=== PATIENT | female | born 1970 | race Caucasian/White ===

== ENCOUNTER 2022-11-28 15:07 | Inpatient (IN) | payer OTHER, SELFPAY ==
[2022-11-28] VITALS (11 sets, daily range): BP systolic 130–240; BP diastolic 14–132; PULSE 79–145; RESP 15–18; TEMP 36.6–37.2; O2SAT 96–99; BMI 29.0
--- NOTE | 2022-11-28 15:21 | EKG12_ITS ---
Test Reason : Blood Pressure : / mmHG Vent. Rate : 129 BPM Atrial Rate : 129 BPM P-R Int : 136 ms QRS Dur : 076 ms QT Int : 304 ms P-R-T Axes : 051 041 005 degrees QTc Int : 445 ms Sinus tachycardia Possible Left atrial enlargement Nonspecific ST abnormality Abnormal ECG Confirmed by MIRELA QUIÑONEZ, JAMES ([id number]), copy editor OSBALDO GOODE ([id number]) on 12/02/2022 10:58:25 AM Referred By: Confirmed By:NAVDEEP DIETZ MD
--- NOTE | 2022-11-28 15:28 | EDS_ITS ---
HPI History of Present Illness Chief Complaint: Hypertension Detail of Chief Complaint: Funduscopic changes occlusion due to HTN with retinal artery branch occlusi Informant: patient, spouse/S.O. and other (Finance Manager) Onset/Context/Timing Onset: - (Unknown) Context: - (Unknown) Timing: Continuous Quality: Ocular changes noted by electrician control equipment. And sent to ER for elevated BP Current Severity: Severe Maximum Severity: Severe Worsened by: Nothing Relieved by: Nothing. Associated Symptoms Associated Symptoms: Blurred vision left eye Narrative Narrative: Patient is a 51-year-old woman with no past medical history on no medication who was sent from ophthalmology office because of blood pressure of 240/140 with funduscopic changes consistent with chronic hypertension. Patient states she was seen by an hospice music therapist approxi-1 year ago. He did take a picture of her fundus and apparently there was no abnormality. She was seen by Dr. Goddard. Blood pressure at office yesterday was 180/110. She returned to have vitreous injection to treat the retinal branch occlusion. She denies headache, ringing or ears decreased hearing. Her only ocular/visual symptom is blurred vision left eye. She denies trouble speech or swallowing. She denies problems with coordination or balance. She denies paresthesia, anesthesia or motor weakness upper or lower extremities. She denies any cardiac or respiratory symptoms. She denies decreased urine output. Prior similar symptoms: No Recent Illness/Hospitalization: No PFSH PFSH Medical History no medical history no medical history Allergy/AdvReac Type Severity Reaction Status Date / Time No Known Allergies Allergy Verified 11/28/22 15:10 Family History no significant family his Surgical History no surgical history no surgical history Social History (Updated 11/28/22 @ 15:[address] Jaspal Ayala MD) household members: spouse Smoking Status: Never smoker substance use type: does not use ROS ROS ED Constitutional Constitutional ED: Denies chills, fever(s), subjective, sweats or weight loss Eyes Eyes: Reports blurry vision right and change in vision right; Denies diplopia ENT ENT ED: Denies ear pain, rhinorrhea or sore throat Cardiovascular Cardiovascular: Denies chest pain, orthopnea, palpitations, paroxysmal nocturnal dyspnea or racing heartbeat Respiratory/Chest Respiratory/Chest: Denies cough, dyspnea, dyspnea on exertion, orthopnea or paroxysmal nocturnal dyspnea Gastrointestinal Gastrointestinal: Denies abdominal pain, nausea or vomiting Genitourinary Genitourinary ED: Denies dysuria, hematuria or urinary frequency Musculoskeletal Musculoskeletal: Denies arthralgias, back pain, myalgias or neck pain Neurologic Neurologic: Denies headache(s), paresthesias or weakness Psychiatric Psychiatric: Reports anxiety Endocrine Endocrinology: Denies cold intolerance or heat intolerance Hematologic/Lymphatic Hematologic/Lymphatic: Reports systems reviewed and no addt'l complaints, except as documented EXAM Physical Exam Const Vital Signs: 11/28/22 15:09 11/28/22 15:52 11/28/22 15:54 Temperature 97.8 F Temperature Source Temporal Pulse Rate 145 H 114 H Respiratory Rate 18 16 Respiratory Effort Normal Respiratory Pattern Normal Blood Pressure 240/14 H Blood Pressure Mean 89 Pulse Ox 98 96 Oxygen Delivery Method Room Air Room Air 11/28/22 16:27 Temperature Temperature Source Pulse Rate 128 H Respiratory Rate 17 Respiratory Effort Respiratory Pattern Blood Pressure 226/132 H Blood Pressure Mean 163 Pulse Ox 97 Oxygen Delivery Method Positive well nourished and well developed General Appearance ED: well developed and NAD; Negative for cyanotic, diaphoretic or pallor HEENT Reports moist mucous membranes HEENT Narrative: Uvula is midline. Posterior pharynx unremarkable. There is no deviation of the tongue with protrusion. Ears and TMs normal. Nares patent. Eyes EOMs intact bilaterally Eyes Narrative: Left eye is dilated. She presented from the electrician control equipment office. There is no papilledema. There are changes noted. After discussion with the ophthalmo logist he informed that there is a retinal branch occlusion and hemorrhages noted. General Eye ED: Negative for pale conjunctiva or scleral icterus Neck no lymphadenopathy, supple and no JVD Resp normal respiratory effort and clear to auscultation bilaterally Cardio regular rhythm, S1 normal heart sound, S2 normal heart sound and no murmurs Rate: tachycardic GI normal to inspection, nondistended, normoactive bowel sounds, non-tender, non- distended and hepatosplenomegaly Back/Spine no CVA tenderness Extremity normal to inspection Neuro oriented x3, CN's II-XII intact bilaterally and no sensory deficits noted Sensorium / Orientation: alert Psych mental status grossly normal Skin no rashes or lesions noted, no wounds and skin turgor normal General Skin Exam: Negative for jaundice or pallor MDM MDM MDM Narrative Medical decision making narrative: Patient has funduscopic changes due to hypertension. Suspect this is longstanding hypertension. Will obtain appropriate work-up which will include EKG, chest x-ray, BMP, UA to evaluate for endorgan dysfunction. Will place on monitor. Patient heart rate was rapid when I examined her. Not certain it is 145. If it is significantly elevated will treat her hypertension with labetalol drip versus a Cardene drip. History & Record Review Discussion w/independent historian: EMS personnel and Significant other Additional record(s) reviewed:: No prior records Lab Data Attestation: I reviewed the patient's lab results. Lab results narrative: CBC is unremarkable. Basic panel is unremarkable. BUN and creatinine are 17 and 0.96 respectively with a GFR of 65. Urine has trace occult blood on macro. Labs: Laboratory Results - last 24 hr 11/28/22 11/28/22 11/28/22 15:45 15:45 16:25 WBC 6.4 RBC 5.33 Hgb 14.5 Hct 46.2 MCV 86.7 MCH 27.2 MCHC 31.4 L RDW Std Deviation 43.2 RDW Coeff of Jeane 13.7 Plt Count 350 MPV 9.7 Immature Gran % (Auto) 0.200 Neut % (Auto) 73.9 H Lymph % (Auto) 18.1 L [place] % (Auto) 6.2 Eos % (Auto) 0.5 Baso % (Auto) 1.1 H Absolute Neuts (auto) 4.7 Absolute Lymphs (auto) 1.16 Nucleated RBC % 0 Sodium 139 Potassium 3.4 L Chloride 109 H Carbon Dioxide 22.0 Anion Gap 8 BUN 17 Creatinine 0.96 Estim Creat Clear Calc 57.99 Est GFR (MDRD) Af Amer 79 Est GFR (MDRD) Non-Af 65 BUN/Creatinine Ratio 17.7 Glucose 106 Calcium 9.7 TSH 1.07 Urine Color Yellow Urine Clarity Clear Urine pH 7.0 Ur Specific [place] 1.010 Urine Protein Negative Urine Glucose (UA) Normal Urine Ketones Negative Urine Occult Blood 10 H Urine Nitrite Negative Urine Bilirubin Negative Urine Urobilinogen Normal Ur Leukocyte Esterase Negative Urine RBC 0-5 SEEN Urine WBC 0 SEEN Ur Squamous Epith Cells 0-5 SEEN Urine Bacteria 0 SEEN Urine Mucus 0 SEEN Radiography Chest X-Ray - ED: 1 View and Read by ED Physician (Cardiac silhouette and size unremarkable. Perihilar region unremarkable with no widening. No evidence of effusion. Osseous structures unremarkable.) Diagnostic Testing: Clinical Impression(s) from Imaging Studies Chest X-Ray 11/28/22 15:45 IMPRESSION: No acute pulmonary disease. Electronically Signed: Adryan Weston MD at 16:32 EDT , Rhythm Strip Rhythm Strip: Sinus Tach Rate: 132 Ectopy: None EKG Initial EKG: Attestation: I personally reviewed and interpreted this EKG as follows: Interpretation: Sinus Tachycardia (Rate is 129. PA interval is 136 ms. QRS duration 76 ms. QT duration 304 ms. [place] is normal. There appears to be left atrial enlargement. There is nonseptic ST-T wave changes. There is no voltage criteria for LVH. EKG is abnormal.) Treatment and Re-Evaluation :: Discussion with electrician control equipment, review of prior records through [facility]. There are no records at [facility] or outside records available for review. This confirms patient has not seen the patient in some time. Titrating blood pressure. Most recent blood pressure is 20 25/126. Hospitalist been paged for admission. 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
--- NOTE | 2022-11-28 15:45 | RAD_ITS ---
INDICATION: hypertension EXAMINATION: Frontal view of the chest COMPARISON: None. FINDINGS: Frontal view of the chest was obtained. The cardiac silhouette is not enlarged. No confluent airspace disease. No pneumothorax. No acute fracture identified. RAD/Chest 1 View (Portable) IMPRESSION: No acute pulmonary disease. Electronically Signed: Adryan Weston MD at 16:32 EDT ,
[2022-11-28 15:54] LABS: Absolute Lymphocyte Count 1.16 X10^3/uL (0.83-4.51); Absolute Neutrophil Count 4.7 X10^3/uL (2.0-7.7); Basophil# 0.07 X10^3/uL; Basophil% 1.1 % (0-1); Eosinophil# 0.03 X10^3/uL; Eosinophils% 0.5 % (0-5); Hematocrit 46.2 % (37-47); Hemoglobin 14.5 g/dL (12.0-15.0); Lymphocyte # 1.16 X10^3/ul (0.83-4.51); Lymphocyte % 18.1 % (19-41); Mean Corp Hgb Conc 31.4 g/dL (32-36); Mean Corpuscular Hgb 27.2 pg (27.0-32.0); Mean Corpuscular Volume 86.7 fL (81-99); Mean Platelet Vol. 9.7 fl (6.2-12.0); Monocyte% 6.2 % (0-10); NRBC Flagged by Analyzer 0 % (0-5); Neutrophil # 4.74 X10^3/uL (2.7-7.7); Neutrophil % 73.9 % (47-70); Platelet Count 350 K/mm3 (150-450); RBC Distribution Width CV 13.7 % (11.6-14.6); RBC Distribution Width SD 43.2 fl (35.1-43.9); Red Blood Count 5.33 M/mm3 (4.2-5.4); White Blood Count 6.4 K/mm3 (4.4-11.0)
[2022-11-28 16:29] LABS: Anion Gap 8 (5-15); BUN 17 mg/dL (7-18); BUN/Creat Ratio 17.7 RATIO (10-20); Calcium,Total 9.7 mg/dL (8.5-10.1); Chloride 109 mmol/L (98-107); Creatinine, Serum 0.96 mg/dL (0.55-1.02); EST Glomerular Filtration Rate 65 mL/min (>60); Est Glom Filt Rate - Afr Amer 79 mL/min (>60); Estimated Creatinine Clearance 57.99 ml/min; Glucose 106 mg/dL (74-106); Potassium 3.4 mmol/L (3.5-5.1); Sodium Level 139 mmol/L (136-145); Thyroid Stim Hormone (TSH) 1.07 uIU/mL (0.358-3.74)
[2022-11-28 16:33] LABS: Bacteria 0 SEEN /hpf (None Seen); Mucous, Urine 0 SEEN /hpf (<or=2+)
[2022-11-28 16:36] LABS: Color, Urine Yellow (Yellow); Glucose, Dipstick Normal (Normal); Ketone-Dipstick Negative (Negative); Leukocyte Esterase-Dipstick Negative /ul (Negative); Nitrite-Dipstick Negative (Negative); Occult Blood-Urine 10 /ul (Negative); Protein-Dipstick Negative (Negative); Urine Bilirubin Dipstick Negative (Negative); Urine Clarity Clear (Clear); Urine Urobilinogen Normal (Normal)
[2022-11-28 16:46] LABS: Red Blood Cells-Urine 0-5 SEEN /hpf (0-5); Squamous Epithelial Cells - UA 0-5 SEEN /hpf (5-10); White Blood Cells 0 SEEN /hpf (0-5)
--- NOTE | 2022-11-28 17:41 | HP.PCM.HOS_ITS ---
HPI - General General Date of Admission: 11/28/22 Date of Service: 11/28/22 Chief Complaint: visual changes HPI Narrative EUSEBIA CLARKE, is a 51 F who presents left eye blurred vision. Went to see compliance technician yesterday and had a blood pressure 180/110. She was returned today to have an injection for retinal branch occlusion. In the office she was noted to have a blood pressure of 240/140 and funduscopic changes consistent with hypertension. Patient was then directed to the emergency room. In the emergency room, her blood pressure was still elevated in the 2 40-1 40 and was also tachycardic. Patient was started on the labetalol drip for hypertensive management. Patient denied any headache, chest pain and really her only complaint was a visual changes in her left eye. Patient does not routinely see a physician so but she did get a blood pressure cuff yesterday when it was noted that her blood pressure was 180/110. [facility] Medical History (Updated 11/28/22 @ 17:[address] Ehsan Anna DO) HTN (hypertension) Medical History no medical history Home Medications NK 11/28/22 [History Last Taken Unknown] Allergy/AdvReac Type Severity Reaction Status Date / Time No Known Allergies Allergy Verified 11/28/22 15:10 Family History (Updated 11/28/22 @ 17:[address] Ehsan Anna DO) Other CVA (cerebral vascular accident) Heart disease Family History no significant family his Surgical History no surgical history Social History (Updated 11/28/22 @ 17:[address] Ehsan Anna DO) household members: spouse Smoking Status: Never smoker alcohol intake: never substance use type: does not use ROS ROS Narrative All review of systems were negative except as mentioned above in the history of present illness and the other review of systems. Vital Signs Vital Signs Vital Signs: 11/28/22 15:09 11/28/22 15:52 11/28/22 15:54 Temperature 36.6 C Temperature Source Temporal Pulse Rate 145 H 114 H Respiratory Rate 18 16 Respiratory Effort Normal Respiratory Pattern Normal Blood Pressure 240/14 H Blood Pressure Mean 89 Pulse Ox 98 96 Oxygen Delivery Method Room Air Room Air 11/28/22 16:27 11/28/22 16:53 11/28/22 17:26 Temperature 36.8 C Temperature Source Temporal Pulse Rate 128 H 104 H 94 Respiratory Rate 17 16 17 Respiratory Effort Respiratory Pattern Blood Pressure 226/132 H 210/116 H 170/106 H Blood Pressure Mean 163 147 127 Pulse Ox 97 97 97 Oxygen Delivery Method Room Air Weight Weight: 74.48 kg Body Mass Index (BMI) 29.0 Physical Exam Const alert and no apparent distress HEENT normocephalic and head/scalp atraumatic Eyes Eyes Narrative: Eyes are dilated. For scopic exam was limited but was concerning for some vitreal hemorrhage. Resp normal respiratory effort, no retractions, no use of accessory muscles and clear to auscultation bilaterally Cardio regular rate, regular rhythm, S1 normal heart sound and S2 normal heart sound GI normal to inspection, nondistended, normoactive bowel sounds, soft to palpation, non-tender and non-distended Extremity normal to inspection Neuro oriented x3, moves all extremities and no focal motor deficits Sensorium / Orientation: awake and alert Results Lab / Micro Data Result Diagrams: 11/28/22 15:45 11/28/22 15:45 Labs: Laboratory Results - last 24 hr 11/28/22 15:45: WBC 6.4, RBC 5.33, Hgb 14.5, Hct 46.2, MCV 86.7, MCH 27.2, MCHC 31.4 L, RDW Std Deviation 43.2, RDW Coeff of Jeane 13.7, Plt Count 350, MPV 9.7, Immature Gran % (Auto) 0.200, Neut % (Auto) 73.9 H, Lymph % (Auto) 18.1 L, [place] % (Auto) 6.2, Eos % (Auto) 0.5, Baso % (Auto) 1.1 H, Absolute Neuts (auto) 4.7, Absolute Lymphs (auto) 1.16, Nucleated RBC % 0 11/28/22 15:45: Sodium 139, Potassium 3.4 L, Chloride 109 H, Carbon Dioxide 22.0, Anion Gap 8, BUN 17, Creatinine 0.96, Estim Creat Clear Calc 57.99, Est GFR (MDRD) Af Amer 79, Est GFR (MDRD) Non-Af 65, BUN/Creatinine Ratio 17.7, Glucose 106, Calcium 9.7, TSH 1.07 11/28/22 16:25: Urine Color Yellow, Urine Clarity Clear, Urine pH 7.0, Ur Specific [place] 1.010, Urine Protein Negative, Urine Glucose (UA) Normal, Urine Ketones Negative, Urine Occult Blood 10 H, Urine Nitrite Negative, Urine Bilirubin Negative, Urine Urobilinogen Normal, Ur Leukocyte Esterase Negative, Urine RBC 0-5 SEEN, Urine WBC 0 SEEN, Ur Squamous Epith Cells 0-5 SEEN, Urine Bacteria 0 SEEN, Urine Mucus 0 SEEN Rhythm Strip Rhythm Strip: Sinus Tach Rate: 132 Ectopy: None Radiology Impression Chest X-Ray 11/28/22 15:45 IMPRESSION: No acute pulmonary disease. Electronically Signed: Adryan Weston MD at 16:32 EDT , Assessment & Plan Assessment/Plan (1) Hypertensive emergency: PLAN: Hypertensive emergency with changes in her left eye with retinal branch occlusion as well as hemorrhage patient was started on a labetalol drip and blood pressure seems to be improved. We will start the patient on lisinopril and hydrochlorothiazide and if blood pressure can remain less than 180 systolic then we can discontinue the labetalol drip and continue with the lisinopril and hydrochlorothiazide. X-ray the patient understands another that we are not anticipating her having normal blood pressures upon discharge but having much more reasonable. It is unclear how long her blood pressure has been elevated but we suspect its been elevated for period of time Patient now does have a blood pressure cuff at home and she has been encouraged to continue to use that until her blood pressure is stabilized at home. Patient also advised to become established with a primary care physician who can manage her blood pressure as well as her other routine maintenance and screening. 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 This is likely due to the hypertensive emergency Patient will need to follow-up with ophthalmology as outpatient PLAN: Plan VTE prophylaxis patient be on SCDs Disposition: Patient will be admitted to the ICU due to labetalol drip but if we can have that discontinued then patient can be eventually PCU status. We will need to monitor to ensure stability of her blood pressure prior to discharge. Charges/Coding Visit Charges Inpatient E&M: 45226 Init Hosp L3
--- NOTE | 2022-11-28 19:31 | ED.RN ---
PER DR. GARCIA SHUT OFF LABETALOL. DR. GARCIA STATES HE PUT IN PARAMETERS FOR MEDICATION BUT UNABLE TO SEE ON MAR. MAR DOUBLE CHECKED WITH KRISTINA CHARGE NURSE
--- NOTE | 2022-11-28 19:46 | ECHOD_ITS ---
Reason For Study: HYPERTENSIVE EMERGENY Procedure This was a 2D Doppler, Color Flow transthoracic echocardiogram. Exam performed portable in ICU/CCU. Left Ventricle Normal LV size. The estimated ejection fraction is 70 %. Normal diastology for age. No regional wall motion abnormalities noted. Right Ventricle Normal RV size. Normal systolic function. Atria Normal left atrium. Normal right atrium. No doppler evidence for ASD. Mitral Valve There is no mitral valve stenosis. No mitral valve insufficiency. Tricuspid Valve There is no tricuspid stenosis. Unable to estimate RV systolic pressure due to insufficient tricuspid regurgitant envelope. Trivial tricuspid valve insufficiency. Aortic Valve Trisinus/trileaflet aortic valve. There is no aortic stenosis. No aortic valve insufficiency. Pulmonic Valve There is no pulmonic valvular stenosis. No pulmonic valve insufficiency. Great Vessels Normal aortic root. Pericardium/Pleural No pericardial effusion. MMode/2D Measurements & Calculations LVIDd: 4.2 cm IVSd: 1.2 cm Ao root diam: 2.6 cm LVIDs: 2.7 cm LVPWd: 1.2 cm FS: 35.2 % LAV(MOD-bp): 48.8 ml EDV(MOD-sp4): 59.2 ml SV(MOD-sp4): 31.0 ml LAV(MOD-bp) Indexed: 27.5 ml/m2 ESV(MOD-sp4): 28.2 ml LAV(MOD-sp2): 42.1 ml EF(MOD-sp4): 52.3 % LAV(MOD-sp4): 51.0 ml LA dimension(2D): 3.2 cm LA A4 area: 18.2 cm2 RA A4 area: 11.7 cm2 Time Measurements MV dec time: 0.20 sec Doppler Measurements & Calculations MV E max sridhar: 102.6 cm/sec Lat Peak E' Sridhar: 7.8 cm/sec Med Peak E' Sridhar: 6.2 cm/sec MV A max sridhar: 114.1 cm/sec E/E' lat: 13.2 E/E' med: 16.6 MV E/A: 0.90 MV V2 max: 118.3 cm/sec MV dec slope: 533.7 cm/sec2 Ao V2 max: 203.7 cm/sec MV max P.6 mmHg Ao max P.6 mmHg MV V2 mean: 82.0 cm/sec Ao V2 mean: 142.9 cm/sec MV mean P.0 mmHg Ao mean P.3 mmHg MV V2 VTI: 29.8 cm Ao V2 VTI: 40.3 cm PA V2 max: 131.6 cm/sec PA V2 mean: 100.4 cm/sec ECHO/Echo Complete Interpretation Summary The estimated ejection fraction is 70 %. No significant valvular abnormalities Ordering Physician: Ehsan Anna Referring Physician: MARIANNE GARIBAY Performed By: Christy Fu RCS
[2022-11-28] MEDS: Lisinopril 20 MG Tablet PO (20:26)
[2022-11-28] MEDS: hydroCHLOROthiazide 25 MG Tablet PO (20:26)
[2022-11-28] MEDS: Potassium Chloride Oral Tablet 20 MEQ 40 MEQ PO (21:12)
[2022-11-29] VITALS (11 sets, daily range): BP systolic 107–136; BP diastolic 66–89; PULSE 70–86; RESP 12–16; TEMP 36.9–37.1; O2SAT 96–99; BMI 28.9
[2022-11-29 05:05] LABS: Anion Gap 4 (5-15); BUN 15 mg/dL (7-18); BUN/Creat Ratio 16.8 RATIO (10-20); Calcium,Total 9.2 mg/dL (8.5-10.1); Chloride 109 mmol/L (98-107); EST Glomerular Filtration Rate 71 mL/min (>60); Est Glom Filt Rate - Afr Amer 85 mL/min (>60); Estimated Creatinine Clearance 61.86 ml/min; Glucose 112 mg/dL (74-106); Magnesium 2.5 mg/dL (1.6-2.6); Potassium 3.9 mmol/L (3.5-5.1); Sodium Level 139 mmol/L (136-145)
--- NOTE | 2022-11-29 07:38 | PCM.PN.HOSP ---
Reason for Visit Reason for Visit: Diagnoses Other specified retinal disorders (11/28/22) Essential (primary) hypertension (11/28/22) Hypertensive emergency (11/28/22) Subjective Subjective feeling well. Objective Data Objective Data Vital Signs: Vital Signs Temp Pulse Resp BP Pulse Ox O2 Del Method 37.1 C 86 12 119/76 96 Room Air 11/29/22 00:00 11/29/22 06:00 11/29/22 06:00 11/29/22 06:00 11/29/22 06:00 11/29/22 06:00 Oxygen Delivery Method Room Air Weight: 74 kg Body Mass Index (BMI) 28.9 Intake & Output: Intake and Output for Last 24 Hours 11/27/22 11/28/22 11/29/22 23:59 23:59 23:59 Intake Total 593.75 / 1093.75 500 / 500 Balance 593.75 / 1093.75 500 / 500 Lab / Micro Data Result Diagrams: 11/28/22 15:45 11/29/22 04:45 Labs: Laboratory Results - last 24 hr 11/28/22 15:45: WBC 6.4, RBC 5.33, Hgb 14.5, Hct 46.2, MCV 86.7, MCH 27.2, MCHC 31.4 L, RDW Std Deviation 43.2, RDW Coeff of Jeane 13.7, Plt Count 350, MPV 9.7, Immature Gran % (Auto) 0.200, Neut % (Auto) 73.9 H, Lymph % (Auto) 18.1 L, [place] % (Auto) 6.2, Eos % (Auto) 0.5, Baso % (Auto) 1.1 H, Absolute Neuts (auto) 4.7, Absolute Lymphs (auto) 1.16, Nucleated RBC % 0 11/28/22 15:45: Sodium 139, Potassium 3.4 L, Chloride 109 H, Carbon Dioxide 22.0, Anion Gap 8, BUN 17, Creatinine 0.96, Estim Creat Clear Calc 57.99, Est GFR (MDRD) Af Amer 79, Est GFR (MDRD) Non-Af 65, BUN/Creatinine Ratio 17.7, Glucose 106, Calcium 9.7, TSH 1.07 11/28/22 16:25: Urine Color Yellow, Urine Clarity Clear, Urine pH 7.0, Ur Specific [place] 1.010, Urine Protein Negative, Urine Glucose (UA) Normal, Urine Ketones Negative, Urine Occult Blood 10 H, Urine Nitrite Negative, Urine Bilirubin Negative, Urine Urobilinogen Normal, Ur Leukocyte Esterase Negative, Urine RBC 0-5 SEEN, Urine WBC 0 SEEN, Ur Squamous Epith Cells 0-5 SEEN, Urine Bacteria 0 SEEN, Urine Mucus 0 SEEN 11/29/22 04:45: Sodium 139, Potassium 3.9, Chloride 109 H, Carbon Dioxide 26.0, Anion Gap 4 L, BUN 15, Creatinine 0.90, Estim Creat Clear Calc 61.86, Est GFR (MDRD) Af Amer 85, Est GFR (MDRD) Non-Af 71, BUN/Creatinine Ratio 16.8, Glucose 112 H, Calcium 9.2, Magnesium 2.5 Radiography Diagnostic Testing: Radiology Impression Chest X-Ray 11/28/22 15:45 IMPRESSION: No acute pulmonary disease. Electronically Signed: Adryan Weston MD at 16:32 EDT , Rhythm Strip Rhythm Strip: Sinus Tach Rate: 132 Ectopy: None Physical Exam Const alert and no apparent distress Resp normal respiratory effort, no retractions, no use of accessory muscles and clear to auscultation bilaterally Cardio regular rate, regular rhythm, S1 normal heart sound and S2 normal heart sound GI normal to inspection, nondistended, normoactive bowel sounds, soft to palpation, non-tender and non-distended Extremity normal to inspection Assessment & Plan Assessment/Plan (1) Hypertensive emergency: PLAN: Improved Hypertensive emergency with changes in her left eye with retinal branch occlusion as well as hemorrhage patient was started on a labetalol drip and blood pressure seems to be improved. We will start the patient on lisinopril and hydrochlorothiazide and if blood pressure can remain less than 180 systolic then we can discontinue the labetalol drip and continue with the lisinopril and hydrochlorothiazide. X-ray the patient understands another that we are not anticipating her having normal blood pressures upon discharge but having much more reasonable. It is unclear how long her blood pressure has been elevated but we suspect its been elevated for period of time Patient now does have a blood pressure cuff at home and she has been encouraged to continue to use that until her blood pressure is stabilized at home. Patient also advised to become established with a primary care physician who can manage her blood pressure as well as her other routine maintenance and screening. Echo shows an EF 70%. 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 This is likely due to the hypertensive emergency Patient will need to follow-up with ophthalmology as outpatient PLAN: Plan VTE prophylaxis patient be on SCDs Disposition: Patient will be admitted to the ICU due to labetalol drip but if we can have that discontinued then patient can be eventually PCU status. We will need to monitor to ensure stability of her blood pressure prior to discharge.
[2022-11-29] MEDS: Lisinopril 20 MG Tablet PO (09:53)
[2022-11-29] MEDS: hydroCHLOROthiazide 25 MG Tablet PO (09:53)
--- NOTE | 2022-11-29 10:40 | CASEMGMT ---
RN?CM?GAMING INVESTIGATOR?CM?to room to meet with patient for initial transition planning/care coordination?assessment.?RN?CM?introduced self and role at [facility].? Pt voices understanding and consents to?assessment?at this time.? Pt resting in bed in no distress at this time.? @ bedside. Pt is A/O at this time and answers all questions appropriately.?? Care providers, pharmacy, and demographics verified/updated at this time. PCP: Lisa Paulino Specialists:ruby on rails consultant [facility] Insurance: MMO Prescription Benefit:?I think so Living Will/HPOA:?States does not have LW or HCPOA .? Interested in more information but states does not want to talk with SW at this time to complete paperwork.? Provided information on advanced directives and has Social Service rac card with number to call if chooses in the future to utilize [facility] social work for advanced directive completion. Educated patient that, if patient so chooses, can come back to [facility] and meet with a SW as an outpatient to complete health care advanced directives. Patient expresses understanding. LNOK: , Amador. 2 children. Mother, Reina Living Arrangements: Lives w/ in 2-story home. Independent. Transportation:?Pt states drives self and states no transportation concerns at this time. also drives. ? DME: ? Denies using any DME and denies needs. HHC/SNF: No hx of either and no needs identified. Pt wishes to return home and states has no concerns with going home at time of discharge.? CM?to follow for any discharge planning/needs.? Pt and benniebnad voice no concerns/needs at this time.? Advised them to ask for?CM?if any further questions/concerns/needs arise.? They voice understanding. PLAN:??Home Karsten BSN?RN?CM
--- NOTE | 2022-11-29 12:34 | DCINST_ITS ---
Discharge Instructions Diet Discharge Diet: - (no added salt) Dressing / Incision Call your doctor if you observe: Shortness of breath, Chest pain and - (further visual changes) Follow Up Care Test Results: Test results from this visit will be discussed in further detail at your follow- up appointment, if applicable. Discharge Plan Admission Admit Date/Time: 11/28/22 17:36 Primary Reason for Your Visit: hypertensive emergency Attending Provider: Ehsan Anna Primary Care Provider: Lisa Paulino Instructions Additional Instructions / Restrictions: Check you blood pressure daily. When you, make sure you are sitting at rest for several minutes before checking it. Keep a record of the readings. Continue this until you follow up with your primary care physician. Follow up with ophthalmology at your earliest convenience. Discharge Orders/Prescriptions Prescriptions: New lisinopril 20 mg Tablet 20 mg PO DAILY Qty: 30 0RF hydrochlorothiazide 25 mg Tablet 25 mg PO DAILY Qty: 30 0RF Referrals / Follow Up: Lisa Paulino DO [Primary Care Provider] - See Referral Note (at earliest convenience) Disposition Disposition (needs filled in before D/C Order can be placed): Home, Self Care
--- NOTE | 2022-11-29 12:41 | DS.PCM_ITS ---
Providers Date of Admission: 11/28/22 Primary Care Physician: Marianne Paulino DO Reason For Visit: HYPERTENSIVE EMERGENCY Diagnosis Discharge Diagnosis (1) Hypertensive emergency: Status: Acute Code(s): I16.1 - Hypertensive emergency Plan: Improved Hypertensive emergency with changes in her left eye with retinal branch occlusion as well as hemorrhage patient was started on a labetalol drip and blood pressure seems to be improved. We will start the patient on lisinopril and hydrochlorothiazide and if blood pressure can remain less than 180 systolic then we can discontinue the labetalol drip and continue with the lisinopril and hydrochlorothiazide. X-ray the patient understands another that we are not anticipating her having normal blood pressures upon discharge but having much more reasonable. It is unclear how long her blood pressure has been elevated but we suspect its been elevated for period of time Patient now does have a blood pressure cuff at home and she has been encouraged to continue to use that until her blood pressure is stabilized at home. Patient also advised to become established with a primary care physician who can manage her blood pressure as well as her other routine maintenance and screening. Echo shows an EF 70%. 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 This is likely due to the hypertensive emergency Patient will need to follow-up with ophthalmology as outpatient Plan VTE prophylaxis patient be on SCDs Disposition: Patient will be admitted to the ICU due to labetalol drip but if we can have that discontinued then patient can be eventually PCU status. We will need to monitor to ensure stability of her blood pressure prior to discharge. Medications at Discharge Home Medications hydrochlorothiazide 25 mg tablet 25 mg PO DAILY #30 tabs 11/29/22 lisinopril 20 mg tablet 20 mg PO DAILY #30 tabs 11/29/22 Hospital Course Procedures 2-D Echocardiogram Summary of Care Provided Minutes Spent on Discharge: 28 Weight / BMI Weight Weight: 74 kg Body Mass Index (BMI) 28.9 ABG / Lab / Microbiology Data Result Diagrams: 11/28/22 15:45 11/29/22 04:45 Laboratory: Laboratory Results - last 24 hr 11/28/22 15:45: WBC 6.4, RBC 5.33, Hgb 14.5, Hct 46.2, MCV 86.7, MCH 27.2, MCHC 31.4 L, RDW Std Deviation 43.2, RDW Coeff of Jeane 13.7, Plt Count 350, MPV 9.7, Immature Gran % (Auto) 0.200, Neut % (Auto) 73.9 H, Lymph % (Auto) 18.1 L, Scott % (Auto) 6.2, Eos % (Auto) 0.5, Baso % (Auto) 1.1 H, Absolute Neuts (auto) 4.7, Absolute Lymphs (auto) 1.16, Nucleated RBC % 0 11/28/22 15:45: Sodium 139, Potassium 3.4 L, Chloride 109 H, Carbon Dioxide 22.0, Anion Gap 8, BUN 17, Creatinine 0.96, Estim Creat Clear Calc 57.99, Est GFR (MDRD) Af Amer 79, Est GFR (MDRD) Non-Af 65, BUN/Creatinine Ratio 17.7, Glucose 106, Calcium 9.7, TSH 1.07 11/28/22 16:25: Urine Color Yellow, Urine Clarity Clear, Urine pH 7.0, Ur Specific [place] 1.010, Urine Protein Negative, Urine Glucose (UA) Normal, Urine Ketones Negative, Urine Occult Blood 10 H, Urine Nitrite Negative, Urine Bili estes Negative, Urine Urobilinogen Normal, Ur Leukocyte Esterase Negative, Urine RBC 0-5 SEEN, Urine WBC 0 SEEN, Ur Squamous Epith Cells 0-5 SEEN, Urine Bacteria 0 SEEN, Urine Mucus 0 SEEN 11/29/22 04:45: Sodium 139, Potassium 3.9, Chloride 109 H, Carbon Dioxide 26.0, Anion Gap 4 L, BUN 15, Creatinine 0.90, Estim Creat Clear Calc 61.86, Est GFR (MDRD) Af Amer 85, Est GFR (MDRD) Non-Af 71, BUN/Creatinine Ratio 16.8, Glucose 112 H, Calcium 9.2, Magnesium 2.5 Radiography Diagnostic Testing: Radiology Impression Chest X-Ray 11/28/22 15:45 IMPRESSION: No acute pulmonary disease. Electronically Signed: Adryan Weston MD at 16:32 EDT , Echocardiogram 11/28/22 19:46 Interpretation Summary The estimated ejection fraction is 70 %. No significant valvular abnormalities Ordering Physician: Ehsan Anna Referring Physician: MARIANNE PAULINO Performed By: Christy Fu RCS D/C Instructions Discharge Diet: - (no added salt) Call your doctor if you observe: Shortness of breath, Chest pain and - (further visual changes) Meaningful Use Info Meaningful Use Diagnoses (Choose all that apply): None applicable Discharge Plan Admission Admit Date/Time: 11/28/22 17:36 Primary Reason for Your Visit: hypertensive emergency Attending Provider: Ehsan Anna Primary Care Provider: Marianne Paulino Instructions Additional Instructions / Restrictions: Check you blood pressure daily. When you, make sure you are sitting at rest for several minutes before checking it. Keep a record of the readings. Continue this until you follow up with your primary care physician. Follow up with ophthalmology at your earliest convenience. Discharge Orders/Prescriptions Prescriptions: New lisinopril 20 mg Tablet 20 mg PO DAILY Qty: 30 0RF hydrochlorothiazide 25 mg Tablet 25 mg PO DAILY Qty: 30 0RF Referrals / Follow Up: Marianne Paulino DO [Primary Care Provider] - See Referral Note (at earliest convenience) Disposition Disposition (needs filled in before D/C Order can be placed): Home, Self Care Charges/Coding Visit Charges Inpatient E&M: 93232 Disch Hosp
== END 2022-11-29 15:00 | disposition home or self-care (01) | DRG 305 ==
LOC: ED 16:49 → ICU 17:43
PROVIDERS: Emergency Provider Emergency Medicine; PCP Family Medicine
DX: I16.1 Hypertensive emergency (principal); H34.232 Retinal artery branch occlusion, left eye; H35.62 Retinal hemorrhage, left eye; I10 Essential (primary) hypertension; Z79.899 Other long term (current) drug therapy
CPT/HCPCS: 71045; 80048; 81001; 83735; 84443; 85025; 93005; 93306; 99284; J7050; A4216